=== PATIENT | female | born 2000 ===

== ENCOUNTER 2023-01-08 19:44 | Emergency (ER) | payer SELFPAY ==
[2023-01-08 20:08] VITALS: BP 129/69; PULSE 84; RESP 16; TEMP 36.8; O2SAT 100
--- NOTE | 2023-01-08 20:17 | ECG_ITS ---
Measurements Intervals [place] Rate: 80 P: 45 DE: 184 QRS: 33 QRSD: 89 T: 12 QT: 350 QTc: 406 Interpretive Statements SINUS RHYTHM MINIMAL Q WAVES- INFERIOR LEADS BORDERLINE T WAVE ABNORMALITY- ANTERIOR LEADS BORDERLINE ECG NO PREVIOUS ECG AVAILABLE FOR COMPARISON Electronically Signed On 01-08-2023 20:51:14 CDT by Lupillo Abraham D.O.
--- NOTE | 2023-01-08 20:45 | PC.NURSE ---
patient left from waiting area
== END 2023-01-08 21:00 | disposition left against medical advice (07) ==
PROVIDERS: Emergency Provider Emergency Medicine
DX: R10.9 Unspecified abdominal pain (principal); Z53.21 Procedure and treatment not carried out due to patient leaving prior to being seen by health care provider
CPT/HCPCS: 93005; 99199